=== PATIENT | female | born 1960 | race Caucasian/White ===

== ENCOUNTER → 2016-10-01 | Day surgery (SDC) | payer BC ==
[2016-09-29 12:20] VITALS: BMI 38.9
[~2016-10-01] MED LIST: BUPIVACAINE 0.25%-EPINEPHRINE 1:200,000 30 ML INF ONE; DEXAMETHASONE 4 MG/ML VIAL IV PRN; DEXAMETHASONE 4 MG/ML VIAL ONE; DIAZEPAM 5 MG TAB PO PRN; FENTANYL 100 MCG/2 ML VIAL IV PRN; FENTANYL 100 MCG/2 ML VIAL ONE; GLYCOPYRROLATE 1 MG VIAL ONE; HYDROCODONE 5 MG/ACETAMIN 325 MG TAB PO PRN; KETOROLAC TROMETH 30 MG/ML VIAL IV PRN; LABETALOL 20 MG/4 ML SYRINGE IV ONE; LABETALOL 20 MG/4 ML SYRINGE IV PRN; LR 1,000 ML IV ONE; LR 1,000 ML IV SCH; MIDAZOLAM 2 MG/2 ML VIAL ONE; NS 1,000 ML IV SCH; NS 250 ML IV SCH; ONDANSETRON HCL 4 MG/2 ML VIAL IV PRN; ONDANSETRON HCL 4 MG/2 ML VIAL ONE; PROPOFOL 200 MG/20 ML VIAL IV ONE; SCOPOLAMINE TRANSDERMAL PATCH TOP PRN; hydrALAZINE 20 MG/ML VIAL IV PRN
--- NOTE | 2016-10-01 08:01 | PCM.DCS92 ---
Discharge Outpatient Note - Final/Secondary Discharge Diagnosis (1) Tear of medial meniscus of right knee Acute S83.241A - OTH TEAR OF MEDIAL MENISCUS, CURRENT INJURY, R KNEE, INIT [id number], [id number] Aundrea Guillory Physician Follow up/Referrals: Michael Urias MD [Staff Physician] - Listed Time Additional Instructions: Instructions given: 10/01/16 Prescriptions (given at the office) Diet as tolerated Discharge Instructions: * Apply ice to the surgical site for 15-20 minutes out of each hour while awake for the first 2 days post-op, then apply as often as needed to control swelling and pain * Elevate the surgical extremity while sitting or lying down * Keep Bandage clean and dry * May shower after Physical Therapy appointment * Take stool softener while taking pain medication * Ambulate weight bearing as tolerated * No Driving until cleared * ASA 325mg PO QD x 14 days Follow up in office as scheduled - Call office for any additional concerns. ) Follow up with Physical therapy as scheduled
--- NOTE | 2016-10-01 08:01 | HIMOPRPT ---
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 POSTOPERATIVE DIAGNOSIS: Same PROCEDURES: Right knee: 1. Arthroscopic subtotal medial meniscectomy. 2. Chondroplasty lateral femoral condyle, medial femoral condyle, and patellofemoral joint 3. Limited synovectomy. ANESTHESIA: General. SURGEON: Michael Urias MD. HEATER OPERATOR HELPER: MEL Carter. SPECIMENS: None. COMPLICATIONS: None. TOURNIQUET TIME: 28 minute at 250 millimeters of mercury. IMPLANTS: None. FINDINGS: Grade 3 and 4 changes to the weight-bearing surface of the medial femoral condyle; osteochondral flap of the lateral femoral condyle weight- bearing surface measuring approximately 5 mm x 5 mm; grade 3 changes to the posterior patella; complete tear of the posterior horn medial meniscus with extrusion. SIGNIFICANT HISTORY, INDICATIONS, AND CONSENT: Karina is a 55-year-old with long-standing history of knee pain and swelling as well as mechanical symptoms recalcitrant to conservative treatment, who wished to proceed with surgical intervention prior to consideration of total knee replacement for potential improvement in pain, swelling, and mechanical symptoms. Patient's chief complaint was feelings of instability with a shifting of the meniscus which we felt we could improve with arthroscopic partial versus subtotal meniscectomy. Consent was obtained. OPERATION IN DETAIL: The patient was seen in the preop holding area. The right knee was signed. Consent was reviewed. Questions were answered. H and P updated. SCD placed on the contralateral lower extremity. The patient was taken to operating room, placed in supine position on the operating table. Anesthesia placed monitoring devices and performed LMA intubation. The right lower extremity had a tourniquet placed high up on the thigh with the contralateral lower extremity in a well leg [place] and the left leg in the leg [place]. The lower extremity was then sterilely prepped and draped in usual orthopedic fashion. Time-out was performed. Patient received prophylactic antibiotics. Consensus was reached amongst participants in the OR suite. Next, Esmarch was used to exsanguinate the limb. Tourniquet raised to 250 millimeter of mercury. Standard anteromedial and lateral as well as superomedial outflow portals were created. Diagnostic arthroscopy was then performed. The patellofemoral joint was inspected with suprapatellar pouch revealing moderate synovitis. Grade 3 changes to the posterior patella were noted with unstable cartilaginous fragments removed and smoothed performing a chondroplasty with a shaver. The medial and lateral gutters also revealed mild synovitis. The ACL and PCL were probed and found to be intact. Lateral compartment was entered with no meniscal pathology present however a large chondral flap was noted on the weight-bearing surface lateral femoral condyle measuring approximately 5-6 mm in length and width. Chondroplasty was performed removing unstable cartilaginous flap and smoothing with the shaver. After chondroplasty was performed to the medial compartment was entered with slight trephination of the deep MCL to avoid injury to the medial compartment. Grade 3 and areas of grade 4 outer bridge changes were noted on the weight- bearing surface of the medial femoral condyle. Minimal chondroplasty was performed removing unstable cartilage fragments with a shaver. With probing of the posteromedial meniscus a large radial tear was identified and extrusion the meniscus present. Because of her chondral damage no repair was performed rather a subtotal medial meniscectomy was performed removing the posterior aspect of the meniscus and contouring anteriorly to a stable rim. Once probed and found to be stable we then performed further synovectomy to the anterior aspect of the knee removing inflamed synovial tissue. The knee was then thoroughly lavaged our instruments removed and incision sites closed with 4 nylon suture. Tourniquet was released. The subcutaneous tissue was injected with 0.25% Marcaine at the incision sites and closed with 3-0 nylon suture. Sterile soft tissue dressings were placed. Patient was aroused by Anesthesia and taken to Postanesthesia Care Unit in stable condition. PLAN: The patient will be discharged home when okay with Anesthesia. Prescriptions were given for p.r.n. pain, constipation, nausea, and vomiting. He will return to clinic postop day 10 for suture removal wound check. Begin physical therapy for quad strengthening and range of motion on postop day 3. Recommend ASA 325 mg PO QD x14 days for DVT chemoprophylaxis.
[2016-10-01 09:24] VITALS: TEMP 97.4
--- NOTE | 2016-10-01 10:00 | SC.ANESPOS ---
Post-Anesthesia Note LOC: Fully Awake Post-Anesthesia Assessment: Awake, Returned to Baseline, Hemodynamically Stable , Pain Control Adequate Phase I & II Recovery Complete: Yes Apparent Anesthesia Complication: No : N - Vital Signs Blood Pressure: 99/54 Pulse: 77 Resp Rate: 12 O2 Sat: 99 Temp: 97.4 F
[2016-10-01 10:22] VITALS: BP 118/71; PULSE 62
== END ==
LOC: CPSC 07:48
PROVIDERS: ATTEND Orthopaedic Surgery
PROC: 0SBC4ZZ Excision of Right Knee Joint, Percutaneous Endoscopic Approach (ICD-10-PCS; principal; 2016-10-01 09:00)
DX: S83.241A Other tear of medial meniscus, current injury, right knee, initial encounter (principal); M17.11 Unilateral primary osteoarthritis, right knee; M25.461 Effusion, right knee; X50.9XXA Other and unspecified overexertion or strenuous movements or postures, initial encounter
CPT/HCPCS: 29881; J1100; J1885; J2250; J2405; J2704; J3010; J3490